=== PATIENT | female | born 1960 | race Caucasian/White ===

== ENCOUNTER 2024-02-16 10:33 | Inpatient (IN) | payer BC, SELFPAY ==
[2024-02-16] VITALS (18 sets, daily range): BP systolic 98–149; BP diastolic 51–71; BMI 26.4
[2024-02-16 07:03] LABS: % Basophils 0.9 % (0-2); % Eosinophils 1.7 % (0-6); % Immature Granulocytes 0.3 % (0-0.5); % Lymphocytes 12.2 % (20.5-51.1); % Monocytes 5.6 % (1.7-9.3); % Neutrophils 79.3 % (42.2-75.2); Absolute Basophils 0.1 10^3/uL (0-0.2); Absolute Eosinophils 0.2 10^3/uL (0-0.7); Absolute Lymphocytes 1.3 10^3/uL (1.2-3.4); Absolute Monocytes 0.6 10^3/uL (0.1-0.6); Absolute Neutrophils 8.2 10^3/uL (1.4-6.5); Hematocrit 38.1 % (37.0-47.0); Hemoglobin 13.1 g/dL (12.0-16.0); Mean Corp Hgb Conc. 34.4 g/dL (33.0-37.0); Mean Corpuscular Hgb 31.3 pg (27.0-31.0); Mean Corpuscular Volume 91.1 fL (81.0-99.0); Mean Platelet Volume 10.4 fL (7.4-10.4); Nucleated Red Blood Cells % 0 %; Platelet Count 296 10^3/uL (130-400); Red Blood Cell Count 4.18 10^6/uL (4.20-5.40); Red Cell Dist. Width 12.6 % (11.5-14.5); White Blood Cell Count 10.4 10^3/uL (4.8-10.8)
[2024-02-16 07:24] LABS: ALT (SGPT) 25 U/L (0-35); AST (SGOT) 32 U/L (14-36); Albumin 4.7 g/dl (3.5-5.0); Alkaline Phosphatase 45 U/L (38-126); Blood Urea Nitrogen 27 mg/dl (7-17); Calcium 9.8 mg/dl (8.4-10.2); Carbon Dioxide 27 mmol/L (22-30); Chloride 104 mmol/L (98-107); Glucose 144 mg/dl (70-99); Lipase 238 U/L (23-300); Potassium 4.4 mmol/L (3.5-5.1); Sodium 138 mmol/L (135-145); Total Bilirubin 0.5 mg/dl (0.2-1.3); Total Protein 7.4 g/dl (6.3-8.2); eGFR > 60.00
[2024-02-16] MEDS: ZOFRAN 4 MG IV (08:35)
[2024-02-16] MEDS: NSS 1000 IV (08:35)
[2024-02-16] MEDS: TORADOL 15 MG IV (08:35)
--- NOTE | 2024-02-16 10:08 | HPS.HSE ---
Addendum entered and electronically signed by Emiliano Pepper MD 02/16/24 12:33:
I saw and examined the patient independently.
The Research Methods Instructor's note was reviewed and I agree with the note, assessment and plan except where noted below.
Comment: This is a 63-year-old female who presents with a history of C-sections x 3, hysterectomy, cholecystectomy presents with mid abdominal pain yesterday with associated nausea. She underwent a CT scan here which demonstrated fairly large cecal
volvulus. Exam and labs reassuring.
Admit to the general surgery service.
Will plan for an exploratory laparotomy, ileus cecectomy versus right hemicolectomy.
N.p.o., IV fluids, IV antibiotics.
Risks/Benefits/Alternatives, expected postoperative course and possible complications (bleeding, infection, injury to surrounding structures, acute/chronic pain) discussed at length. Patient wishes to proceed with surgery. All questions answered.
Consent obtained.
I spent roughly 60 minutes in total for the care of this patient today including direct patient care and counseling, reviewing labs, imaging, coordination of care, as well as documentation.
Original Note:
Family Physician
-
Family Physician: Jamarcus Bishop
Chief Complaint
-
Abdominal pain
History of Present Illness
63 yo female with a h/o x3, cholecystectomy and hysterectomy who presents with mid abdominal pain which began yesterday with nausea and worsened overnight. She currently denies nausea and is more comfortable after receiving
analgesics/antiemetics in the ED. She denies fevers or chills.
Medical History
Past Medical History
Past Medical History: Reports Hypercholesterolemia and Other (psoriatic arthritis, interstitial cystitis)
Past Surgical History: Reports Cholecystectomy, (x3) and Gynocological (hysterectomy)
Social History
Tobacco: Non-smoker
Alcohol: None
Drug: None
Family History
Family History: Not pertinent
Allergies / Home Medications
Allergies reflects when Allergies were last updated in [employer].
Home Medications with original date entered in [employer]
Allergy/Medication List:
Patient Allergies
Allergy/AdvReac Type Severity Reaction Status Date / Time
codeine Allergy Hives, vomiting. Notes has taken other opioids in the past without hives Verified 02/16/24 06:27
Home meds: Cosentyx SQ weekly
Review of Systems
-
History Source: Patient and Family
A 12 point ROS was completed and negative except as noted: Yes
Physical Exam
Vital Signs
Vital Signs
Temp Pulse Resp BP Pulse Ox
98.1 F 70 20 114/61 100
02/16/24 09:24 02/16/24 09:24 02/16/24 06:27 02/16/24 09:24 02/16/24 09:24
Physical Exam
General: Well Developed, Well Nourished and Conversant
HEENT: Moist mucous membranes
Respiratory: Non Labored Respirations
GI: Soft, Tender (right to mid abd) and Distended
Neuro: Awake, Alert and AO x 3
Psych: Calm
Laboratory Results
-
02/16/24 06:52
02/16/24 06:52
Laboratory Results
Total Bilirubin 0.5 mg/dl (0.2-1.3) 02/16/24 06:52
AST 32 U/L (14-36) 02/16/24 06:52
ALT 25 U/L (0-35) 02/16/24 06:52
Alkaline Phosphatase 45 U/L (38-126) 02/16/24 06:52
Lipase 238 U/L (23-300) 02/16/24 06:52
Data Reviewed
-
CT Scan: Image Personally Visualized and interpreted, Report Reviewed by me, Discussed with Physician, Discussed with Patient and Discussed with Family
Lab Data: Labs Reviewed by me, Discussed with Physician, Discussed with Nurse and Discussed with Family
Old Records: Reviewed
Impression/Plan
-
IMPRESSION:
63 yo female with a h/o x3, cholecystectomy and hysterectomy who presents with mid abdominal pain which began yesterday and worsened overnight. AFVSS. No leukocytosis. CT imaging consistent with cecal volvulus.
PLAN:
Keep NPO
Plan OR today for ileocecectomy
Start IV Zosyn for surg ppx
IVF while NPO
Analgesics/antiemetics prn
SCDs for VTE ppx preop, will start lovenox sq post operatively
--- NOTE | 2024-02-16 10:29 | ED.GENMED ---
History of Present Illness
General
Chief Complaint: Abdominal Pain
Source: patient
Exam Limitations: none
Time Seen by Provider: 02/16/24 07:56
Nursing documentation reviewed up to this point in time: agreed with
Travel History
Have you had any contact with someone who has COVID-19?: No
Do you have any symptoms of coronavirus? Fever > 100 degrees, chills, cough, shortness of breath, sore throat, loss of taste or smell, muscle aches, or headache?: No
History of Present Illness
History of Present Illness:
63-year-old female past medical history of hyperlipidemia previous hysterectomy and cholecystectomy presenting to the emergency department today with concerns of right lower quad abdominal pain worsening since last night. Multiple episodes of
vomiting today no changes in bowel movements.
Past History
Past History
ED Past Medical History: Hypercholesterolemia
ED Past Surgical History: Cholecystectomy, and Gynecological (Hysterectomy)
Social History
Tobacco: Non-smoker
Alcohol: Occasional
Drug: None
Review of Systems
Review of Systems
Allergies reviewed?: Yes
All Other Systems: ROS reviewed and negative except as documented in HPI and ROS
Phy Exam
Physical Exam
Physical Exam:
GENERAL: Alert , in no apparent distress
EYE: pupils equal and reactive
NECK: Supple, no significant adenopathy.
ENT: o/p clr, mmm.
CARDIAC: Regular rate and rhythm .
LUNGS: Clear breath sounds bilaterally, no acute respiratory distress, no wheezes/rales/rhonchi
ABDOMEN right lower quadrant abdominal pain to palpation otherwise soft benign abdomen no peritoneal signs
NEUROLOGICAL: Alert and oriented, no focal neuro deficits
SKIN: Warm and dry, skin intact.
MUSCULOSKELETAL: No edema, well perfused.
PSYCH: Normal and appropriate interaction.
Course
Orders/Labs/Results
Orders:
Orders
02/16/24 06:52
Complete Blood Count/With Diff Urgent
Comprehensive Metabolic Panel Urgent
Lipase Urgent
02/16/24 08:14
CT Abd/Pel (IV only)-DH only Urgent
Comment:
Reason For Exam: RLQ pain, hx hysterectomy, katie
0.9% Sodium Chloride 1000 ml [Nss] 1,000 ml IV BOLUS
Ketorolac [Toradol] 15 mg IV NOW STA
Ondansetron Injectable [Zofran] 4 mg IV NOW STA
02/16/24 10:13
HYDROmorphone [Dilaudid] 0.25 mg IV PACU-Q5MPRN PRN
HYDROmorphone [Dilaudid] 0.5 mg IV PACU-Q5MPRN PRN
Meperidine [Demerol] 12.5 mg IV PACU-Q5MPRN PRN
Ondansetron Injectable [Zofran] 4 mg IV PACU-ONCEPRN PRN
Prochlorperazine [Compazine] 5 mg IV PACU-ONCEPRN PRN
Notify MD As Directed
Notify physician if: for SDS patients with known or suspected sleep obstructive sleep apnea, monitor in the
PACU.
Notify MD for any apneic/desaturation episodes
O2 Therapy [RESP] Urgent
Titrate/Wean O2 to maintain O2 sat greater than (%): 92
Special Instructions: -Provide supplemental oxygen to achieve O2 sat of 92% or greater.
-After 15 min, may wean O2 and discontinue if patient is able to maintain O2 sat of 92%
or greater during recovery period.
If patient is a discharge home, without oxygen therapy, notify anestheiologist if
unable to maintain O2 SAT of 92% or greater on room air for MD clearance.
02/16/24 10:15
Normosol (Mult Electrolytes) [Normosol-R] 1,000 ml IV PER PROTOCOL
02/16/24 10:20
Piperacillin/Tazo 3.375 Gram [Zosyn] 3.375 gram in 50 ml IV NOW
02/16/24 10:21
Admit/Transfer Patient As Directed
Co-Sign Provider:
Level of Care: Inpatient admission
Assign to:: Medical/Surgical
Physician / Group: Evgeny/general surgery
Diagnosis: cecal volvulus
Reason for Hospitalization: cecal volvulus
Expected length of stay greater than two midnights?: Yes
ELOS- Estimated Length of Stay in days: 4
I certify the patient meets the requirements for IP care: Yes
02/16/24 10:22
Code Status As Directed
Resuscitation Status: Full Code
Abnormal Lab Results
02/16/24
06:52
RBC 4.18 L 10^6/uL
(4.20-5.40)
MCH 31.3 H pg
(27.0-31.0)
Absolute Neuts (auto) 8.2 H 10^3/uL
(1.4-6.5)
Neutrophils % 79.3 H %
(42.2-75.2)
Lymphocytes % 12.2 L %
(20.5-51.1)
BUN 27 H mg/dl
(7-17)
Glucose 144 H mg/dl
(70-99)
02/16/24 06:52
02/16/24 06:52
Vital Signs
Initial and Last Documented VS:
Initial Vital Signs
Temp Pulse Resp BP Pulse Ox
98.1 F 98 20 99/60 98
02/16/24 06:27 02/16/24 06:27 02/16/24 06:27 02/16/24 06:27 02/16/24 06:27
Last Documented Vital Signs
Temp Pulse Resp BP Pulse Ox
98.1 F 70 20 114/61 100
02/16/24 09:24 02/16/24 09:24 02/16/24 06:27 02/16/24 09:24 02/16/24 09:24
MDM/Problems Addressed
MDM/Problems Addressed:
63-year-old female presenting to the emergency department today with concerns of right lower quadrant abdominal pain worsening since last night associated multiple episodes of vomiting. Upon arrival vital signs are normal patient does have
significant reproducible tenderness to the right lower quadrant. CT scan confirming cecal volvulus. Case discussed with surgery they will take her to the OR. Otherwise stable throughout ER stay.
*Critical Care Note
Total Time (30-74mins, 75-104mins- exclusive of procedures): Not Applicable
ED Attending Note
-
Portions of this chart may have been created with voice recognition software.� Occasional wrong word or��sound alike� substitutions may have occurred due to the inherent limitations of voice recognition software.
Discharge Plan
Departure
Patient Disposition: OR
Date of Disposition: 02/16/24
Time of Disposition: 10:29
Admit to: Med/Surg
Admit to doctor: Evgeny
Presentation/result/management discussed w/ accepting MD/DO: genreral surgery
Patient with high blood pressure during this ER visit?: No
Condition: Good
Covid-19: Not Applicable
Discharge Problem:
Cecal volvulus
Interventions
Interventions:
*Risk Screen - Suicide Last Done: 02/16/24 06:27
*General Assessment Last Done: 02/16/24 06:27
*Neglect/Abuse Screening Last Done: 02/16/24 06:27
ED- Fall Risk Assessment Last Done: 02/16/24 08:41
*ED COVID-19 Vaccine History Last Done: 02/16/24 06:27
ZP-Vrpvbm-Prutmdyrdr Assessment Last Done: 02/16/24 08:41
[2024-02-16] MEDS: ZOSYN 50 IV ×2 (10:53→20:48)
[2024-02-16] MEDS: DILAUDID 0.5 MG IV ×2 (11:43→15:39)
--- NOTE | 2024-02-16 14:57 | W.SUR.PREOP ---
Pre-Operative Surgical Note
-
I have examined this patient prior to the performance of the scheduled procedure.
The patient's condition is unchanged from the time of the current History and
Physical and the patient is able to undergo the scheduled procedure.
--- NOTE | 2024-02-16 14:57 | W.IMMPOSTOP ---
Surgical Immed Post Op Note
-
Primary Surgeon: Emiliano Pepper MD
Assisting Surgeon: None
Pre-op Diagnosis: Cecal volvulus
Post-op Diagnosis: Same
Procedure Performed: Open right hemicolectomy
Anesthesia Type: General
Specimen / Cultures:
1. Right colon
Estimated Blood Loss: 11 cc
Complications: None
Operative Findings: Grossly dilated cecum, ischemic but no necrosis or perforation noted. Ascending colon mobilized to the hepatic flexure and medialized with exposure of the duodenum. A mlqt-rh-hopp, functional end-to-end stapled ileocolic
anastomosis was performed using a Daljit technique using sequential fires of an 80 cm purple load and a 100 cm blue load.
POST OP PLAN:
Imaging: None
Labs: Routine AM
Diet: Okay for clears
Analgesia: Tylenol 650mg q6 Donna, Erlinda 5mg q6 PRN, Dilaudid 0.5mg q2h PRN
Neuro/vascular checks: q4h
AC/AP: Hold Therapeutic AC, Ok for DVT PPx
Activity: Ad Isela
Wound/Incisions/Drains: Routine. Okay to remove Paredes in the morning if urine output improves
Abx: None
Dispo: RNF
--- NOTE | 2024-02-16 15:42 | OR.RPT ---
Operative Report
Operative Report
Patient Name: Sabrina Lopez
: 1960
Date of Operation: 02/16/2024
Preoperative Diagnosis: Cecal volvulus
Postoperative Diagnosis: Same
Procedure(s):
1. Open right hemicolectomy
Surgeon(s):
Dr. Pepper
Perforator Loader(s):
None
Anesthesia: General
Estimated Blood Loss: 11 cc
Urine Output: 50 cc
Drains/Lines/Implants: 18 Dutch NG tube placed and removed at the end of the case. 16 Dutch Paredes catheter.
Specimens: Right colon
Indication for surgery:
This is a 63-year-old female who presents with a 1 day history of worsening abdominal pain with nausea found to have cecal volvulus. Risk benefits and alternatives were discussed with the patient. She ultimately agreed and was consented for
surgery.
Operative Findings: Grossly dilated cecum, ischemic but no necrosis or perforation noted. Ascending colon mobilized to the hepatic flexure and medialized with exposure of the duodenum. A ravh-jf-nacu, functional end-to-end stapled ileocolic
anastomosis was performed using a Daljit technique using sequential fires of an 80 cm purple load and a 100 cm blue load.
Details of the operation:
The patient was brought to the operating room and positioned supine on the operating table. General anesthesia was induced, followed by successful endotracheal intubation. A nasogastric tube and Paredes catheter were placed. She was positioned with
her bilateral arms out, all pressure points padded and secured to the operating room table using safety straps. Perioperative antibiotics in the form of Zosyn were administered. Her abdomen was prepped and draped in the usual sterile fashion. A
time-out was performed identifying the correct patient and procedure.
A 12 cm, periumbilical vertical midline laparotomy was created. Skin was incised sharply with a knife. Electrocautery was used for hemostasis and to dissect down through the soft tissues. The anterior fascia was identified. Decussation of the
anterior fascial sheath fibers were identified. Anterior fascia was penetrated using electrocautery, and the preperitoneal fat was incised. The abdomen was entered safely. An ischemic cecum was readily identified in our field. A large Kip
retractor was placed to protect the skin. The cecum was detorsed and brought into the field. The white line of Toldt was incised and carried cephalad along the descending colon up to the hepatic flexure. The mesentery of the right colon was then
medialized and the anterior portions of the second and third part of the duodenum were exposed. The terminal ileum appeared completely normal and viable. The right colon was ischemic up to the midpoint of the right colon. Part of the omentum was
tethered over this area and so this was carefully ligated off of the colon wall. Once we had satisfactory mobility of the right colon enterotomies were made on the antimesenteric side of the terminal ileum as well as the antimesenteric tinea of the
right colon. Using sequential fires of an Endo ANGY a stapled pars-wu-jich, functional end-to-end ileocolic anastomosis was performed using a Daljit technique with an intraluminal 80 cm purple followed by an extraluminal 100 cm blue load. There
was bleeding noted at the staple line which was cauterized. The intervening mesentery was ligated and the specimen was passed off the field. Our outer gloves were exchanged. The common enterotomy staple line was then oversewn using interrupted
3-0 silk pops. Two 3-0 silk pops crotch stitches were placed to help offload tension. The mesenteric defect was also closed using a running 3-0 silk. There was minimal blood loss and no spillage of enteric contents. The anastomosis was returned
to the abdomen and covered with omentum. The midline fascial defect was then closed using running [address] on a CT 2 needle anchored at each apex and tied in the middle. The subcutaneous tissues were then irrigated and closed with interrupted
3-0 Vicryl sutures. The skin was then approximated using a running 4-0 Monocryl followed by Dermabond. Given the minimal manipulation of the small intestine the NG tube was removed but the Paredes catheter was left in place. All counts were correct
at the end of procedure. The patient tolerated the procedure well. They were extubated and taken to the recovery area in good condition.
I was the attending physician and performed the procedure with no assistance. I was present for all portions of the case
Emiliano Pepper MD
[2024-02-16] MEDS: DILAUDID PCA 30 IV (16:02)
[2024-02-16] MEDS: NORMOSOL-R 1000 IV (17:09)
--- NOTE | 2024-02-16 17:32 | PTCARENOTE ---
awaiting ready bed
[2024-02-16 18:06] LABS: % Basophils 0.2 % (0-2); % Immature Granulocytes 0.4 % (0-0.5); % Monocytes 5.8 % (1.7-9.3); % Neutrophils 90.6 % (42.2-75.2); Absolute Immature Granulocytes 0.1 10^3/uL (0-0.05); Absolute Lymphocytes 0.4 10^3/uL (1.2-3.4); Absolute Monocytes 0.7 10^3/uL (0.1-0.6); Absolute Neutrophils 11.1 10^3/uL (1.4-6.5); Hematocrit 33.1 % (37.0-47.0); Hemoglobin 11.6 g/dL (12.0-16.0); Mean Corpuscular Hgb 31.5 pg (27.0-31.0); Mean Corpuscular Volume 89.9 fL (81.0-99.0); Mean Platelet Volume 10.2 fL (7.4-10.4); Nucleated Red Blood Cells % 0 %; Platelet Count 229 10^3/uL (130-400); Red Blood Cell Count 3.68 10^6/uL (4.20-5.40); Red Cell Dist. Width 12.8 % (11.5-14.5); White Blood Cell Count 12.3 10^3/uL (4.8-10.8)
--- NOTE | 2024-02-16 18:46 | PTCARENOTE ---
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
[2024-02-16] MEDS: TYLENOL PO (21:37)
[2024-02-17] MEDS: TYLENOL PO ×2 (00:36→04:16)
[2024-02-17] MEDS: ZOSYN 50 IV ×3 (01:56→13:50)
[2024-02-17 03:32] VITALS: BP 99/57
[2024-02-17 05:10] LABS: Hematocrit 30.8 % (37.0-47.0); Mean Corp Hgb Conc. 32.5 g/dL (33.0-37.0); Mean Corpuscular Hgb 30.9 pg (27.0-31.0); Mean Corpuscular Volume 95.1 fL (81.0-99.0); Mean Platelet Volume 10.5 fL (7.4-10.4); Platelet Count 211 10^3/uL (130-400); Red Blood Cell Count 3.24 10^6/uL (4.20-5.40); Red Cell Dist. Width 12.7 % (11.5-14.5); White Blood Cell Count 9.4 10^3/uL (4.8-10.8)
[2024-02-17] MEDS: NORMOSOL-R 1000 IV ×2 (05:26→18:00)
[2024-02-17 05:36] LABS: Blood Urea Nitrogen 17 mg/dl (7-17); Calcium 8.2 mg/dl (8.4-10.2); Carbon Dioxide 26 mmol/L (22-30); Chloride 107 mmol/L (98-107); Estimated Creatinine Clearance 73 ml/min; Glucose 116 mg/dl (70-99); Potassium 4.3 mmol/L (3.5-5.1); Sodium 139 mmol/L (135-145); eGFR > 60.00
[2024-02-17 07:37] VITALS: BP 99/52
--- NOTE | 2024-02-17 08:01 | W.PN.GS2 ---
Addendum entered and electronically signed by Shemar Martin MD 02/17/24 08:07:
Abx: 24 hours post-op
Original Note:
Today's Communication / Plan
-
-- Clears
-- MIVF
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
-- Abx for 4 days post-op
-- DC Paredes
-- OOB/ambulate, use of IS and wean O2
-- Repeat CBC ordered for tomorrow to trend Hb
Assessment / Plan
-
Patient is a 63 yo F POD#1 s/p open right hemicolectomy for cecal volvulus
AVSS, WBC normal, Hb drift down to 10 (tachycardia improved, pressures soft, making good UOP) monitor
Recovering well. No postoperative concerns.
-- Clears
-- MIVF
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
-- Abx for 4 days post-op
-- DC Paredes
-- OOB/ambulate, use of IS and wean O2
-- Repeat CBC ordered for tomorrow to trend Hb
Subjective Data
-
Date of Service: February 17, 2024
Complaints. Pain overall well-controlled. Denies nausea or vomiting. No flatus or BM. No ambulation. Afebrile. Denies shortness of breath or chest pain.
Objective Data
-
Intake and Output
02/16/24 02/17/24 02/18/24
06:59 06:59 06:59
Intake Total 1380 / 1380
Output Total 610 / 610
Balance 770 / 770
Intake:
Oral fluids 120 / 120
IV fluids (Total) 1160 / 1160
normosol 200 / 200
IV piggybacks 100 / 100
Output:
Urine, Paredes 610 / 610
Vital Signs
Temp Pulse Resp BP Pulse Ox
98.8 F 79 17 99/52 97
02/17/24 07:37 02/17/24 07:37 02/17/24 07:37 02/17/24 07:37 02/17/24 07:37
Lab Results
02/17/24 04:36
02/17/24 04:36
Calcium 8.2 mg/dl (8.4-10.2) L D 02/17/24 04:36
Total Bilirubin 0.5 mg/dl (0.2-1.3) 02/16/24 06:52
AST 32 U/L (14-36) 02/16/24 06:52
ALT 25 U/L (0-35) 02/16/24 06:52
Alkaline Phosphatase 45 U/L (38-126) 02/16/24 06:52
Total Protein 7.4 g/dl (6.3-8.2) 02/16/24 06:52
Albumin 4.7 g/dl (3.5-5.0) 02/16/24 06:52
Physical Exam
-
Gen: NAD
Resp: supplemental O2, no coarse BS opr wheeze
Abd: soft, mild tenderness in bl lower abdomen, ND, non-peritoneal, incision with some blistering, no erythema, ecchymosis or drainage
[2024-02-17] MEDS: TYLENOL 650 MG PO ×4 (08:28→19:39)
--- NOTE | 2024-02-17 10:41 | CM ---
Addendum entered by Erika Wood 02/17/24 10:46:
Pharmacy is [facility] in [place] and PCP is Dr. Jamarcus Bishop.
Original Note:
Initial assessment completed with patient with daughter in room. Patient lives with daughter in a 2nd story apartment with no elevator and 10 steps to enter the building. Support system is 2 daughters, 1 daughter is HC POA. 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 Anticipate no needs at discharge. Patient does not want HH.
[2024-02-17 11:26] VITALS: BP 106/54
[2024-02-17] MEDS: CYMBALTA DELAYED RELEASE 60 MG PO (13:50)
[2024-02-17] MEDS: ULTRAM 50 MG PO (14:47)
[2024-02-17 15:31] VITALS: BP 112/57
[2024-02-17] MEDS: LOVENOX 40 MG SC (18:01)
[2024-02-17] MEDS: DILAUDID 0.5 MG IV (19:39)
[2024-02-17 19:52] VITALS: BP 137/78
[2024-02-17 23:10] VITALS: BP 121/64
[2024-02-18] MEDS: TYLENOL 650 MG PO ×6 (00:51→20:00)
[2024-02-18 05:41] LABS: Hematocrit 26.8 % (37.0-47.0); Hemoglobin 8.9 g/dL (12.0-16.0); Mean Corp Hgb Conc. 33.2 g/dL (33.0-37.0); Mean Corpuscular Hgb 30.8 pg (27.0-31.0); Mean Corpuscular Volume 92.7 fL (81.0-99.0); Mean Platelet Volume 10.4 fL (7.4-10.4); Platelet Count 170 10^3/uL (130-400); Red Blood Cell Count 2.89 10^6/uL (4.20-5.40); Red Cell Dist. Width 12.6 % (11.5-14.5); White Blood Cell Count 6.5 10^3/uL (4.8-10.8)
[2024-02-18] MEDS: CYMBALTA DELAYED RELEASE 60 MG PO (07:29)
[2024-02-18] MEDS: ULTRAM 50 MG PO ×2 (07:29→13:29)
[2024-02-18 07:40] VITALS: BP 111/55
--- NOTE | 2024-02-18 11:20 | W.PN.GS2 ---
Today's Communication / Plan
-
Trend Hb
Adv to fulls
Monitor for nausea
Assessment / Plan
-
Patient is a 63 yo F POD#2 s/p open right hemicolectomy for cecal volvulus
AVSS, WBC normal, Hb drift down to 9, likely equilibration/dilution
Recovering well. Mild nausea, ileus is a risk here but she has no bloating/belching/distention. Will go slow with diet advancement.
-- Adv to fulls
-- MIVF
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
-- Abx for 4 days post-op
-- OOB/ambulate, use of IS and wean O2
-- Repeat CBC ordered for tomorrow to trend Hb
Subjective Data
-
Date of Service: February 18, 2024
AFVSS, amblating, voiding, philip clears, denies n/v, pain controlled, endorsed mild nausea
Objective Data
-
Intake and Output
02/17/24 02/18/24 02/19/24
06:59 06:59 06:59
Intake Total 1380 / 1380 2660 / 2660
Output Total 610 / 610 700 / 700
Balance 770 / 770 1960 / 1960
Intake:
Oral fluids 120 / 120 960 / 960
IV fluids (Total) 1160 / 1160 1600 / 1600
normosol 200 / 200
IV piggybacks 100 / 100 100 / 100
Output:
Urine, Paredes 610 / 610 700 / 700
Other:
Number of approximated MODERATE 1
amounts of urine
Number of approximated LARGE 2
amounts of urine
Vital Signs
Temp Pulse Resp BP Pulse Ox
98.8 F 77 17 111/55 97
02/18/24 07:40 02/18/24 07:40 02/18/24 07:40 02/18/24 07:40 02/18/24 08:00
Lab Results
02/18/24 05:24
02/17/24 04:36
Calcium 8.2 mg/dl (8.4-10.2) L D 02/17/24 04:36
Total Bilirubin 0.5 mg/dl (0.2-1.3) 02/16/24 06:52
AST 32 U/L (14-36) 02/16/24 06:52
ALT 25 U/L (0-35) 02/16/24 06:52
Alkaline Phosphatase 45 U/L (38-126) 02/16/24 06:52
Total Protein 7.4 g/dl (6.3-8.2) 02/16/24 06:52
Albumin 4.7 g/dl (3.5-5.0) 02/16/24 06:52
Physical Exam
-
Gen: NAD
Abd: soft, approp ttp, incision cdi with glue
[2024-02-18 15:10] VITALS: BP 142/74
[2024-02-18 23:10] VITALS: BP 145/70
[2024-02-19] MEDS: TYLENOL 650 MG PO ×4 (00:24→13:03)
[2024-02-19 07:20] VITALS: BP 154/88
[2024-02-19] MEDS: CYMBALTA DELAYED RELEASE 60 MG PO (08:08)
--- NOTE | 2024-02-19 09:05 | W.PN.GS2 ---
Today's Communication / Plan
-
`
Assessment / Plan
-
Patient is a 63 yo F POD#3 s/p open right hemicolectomy for cecal volvulus
AFVSS, Hb drift down to 9, likely equilibration/dilution
philip diet advancement with signs of returning GI function
-- Low residue diet
-- okay to shower
-- Multimodal pain control options
-- Abx for 4 days post-op
-- OOB/ambulate, use of IS and wean O2
-- AM labs pending
Poss d/c in PM if doing well with diet advancement
Subjective Data
-
Date of Service: February 19, 2024
Patient seen and examined
Overall feeling well, appetite starting to return
Tolerating full liquids, no nausea, no vomiting, stable mild postoperative bloating
Passing flatus regularly but no bowel movements yet
Objective Data
-
Intake and Output
02/18/24 02/19/24 02/20/24
06:59 06:59 06:59
Intake Total 2660 / 2660 240 / 240
Output Total 700 / 700
Balance 1960 / 1960 240 / 240
Intake:
Oral fluids 960 / 960 240 / 240
IV fluids (Total) 1600 / 1600
IV piggybacks 100 / 100
Output:
Urine, Paredes 700 / 700
Other:
Number of approximated MODERATE 1 2
amounts of urine
Number of approximated LARGE 2
amounts of urine
Vital Signs
Temp Pulse Resp BP Pulse Ox
97.9 F 77 17 154/88 96
02/19/24 07:20 02/19/24 07:20 02/19/24 07:20 02/19/24 07:20 02/19/24 07:20
Lab Results
02/18/24 05:24
02/17/24 04:36
Calcium 8.2 mg/dl (8.4-10.2) L D 02/17/24 04:36
Total Bilirubin 0.5 mg/dl (0.2-1.3) 02/16/24 06:52
AST 32 U/L (14-36) 02/16/24 06:52
ALT 25 U/L (0-35) 02/16/24 06:52
Alkaline Phosphatase 45 U/L (38-126) 02/16/24 06:52
Total Protein 7.4 g/dl (6.3-8.2) 02/16/24 06:52
Albumin 4.7 g/dl (3.5-5.0) 02/16/24 06:52
Physical Exam
-
NAD AAOx3
ABD: soft, ND, minimal tenderness
incision with glue dressing, no erythema, no drainage, localized ecchymosis no hematomas
[2024-02-19 11:57] LABS: % Basophils 0.7 % (0-2); % Eosinophils 5.6 % (0-6); % Immature Granulocytes 0.3 % (0-0.5); % Lymphocytes 13.4 % (20.5-51.1); % Monocytes 6.2 % (1.7-9.3); % Neutrophils 73.8 % (42.2-75.2); Absolute Basophils 0.1 10^3/uL (0-0.2); Absolute Eosinophils 0.4 10^3/uL (0-0.7); Absolute Monocytes 0.4 10^3/uL (0.1-0.6); Absolute Neutrophils 5.3 10^3/uL (1.4-6.5); Hematocrit 31.4 % (37.0-47.0); Hemoglobin 10.7 g/dL (12.0-16.0); Mean Corp Hgb Conc. 34.1 g/dL (33.0-37.0); Mean Corpuscular Hgb 30.5 pg (27.0-31.0); Mean Corpuscular Volume 89.5 fL (81.0-99.0); Mean Platelet Volume 10.3 fL (7.4-10.4); Nucleated Red Blood Cells % 0 %; Platelet Count 243 10^3/uL (130-400); Red Blood Cell Count 3.51 10^6/uL (4.20-5.40); Red Cell Dist. Width 12.2 % (11.5-14.5); White Blood Cell Count 7.2 10^3/uL (4.8-10.8)
--- NOTE | 2024-02-19 13:50 | CM ---
POD # 3, Low residue diet. DISCHARGE PLAN OF CARE: HOME with NO NEEDS. Patient declining home health services.
--- NOTE | 2024-02-19 14:28 | CM ---
Patient has been medically cleared for discharge to home with no additional skilled services. Daughter will transport home.
[2024-02-19 14:59] VITALS: BP 140/93
--- NOTE | 2024-02-20 11:03 | W.DCSUMMARY ---
Discharge Summary
Discharge Data
Date of Admission: 02/16/24
Date of Discharge: 02/19/24
-
Pending Results: No
Hospital Course
Ms Lopez presented through the ED with <24 hours abdominal pain with associated nausea. 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 The patient was taken urgently to the OR for management with open right hemicolectomy. She
initially required [employer] pump post operatively which was able to be discontinued the following day. Diet was able to be advanced slowly and well tolerated. Perioperative wang was removed and patient was voiding well. She was discharged to home on a
short course of antibiotics once pain was well controlled and she was tolerating a low residue diet.
Discharge Plan
-
Patient Disposition: Home (Routine Discharge)
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
Condition: Good
Diet: Low Residue
Activity: No strenuous activity
Bathing Restrictions: OK to Shower
Wound Care: Glue at surgical sites typically peels off in 2 to 3 weeks
Activity Restrictions/Additional Instructions:
Colon and Rectal Surgery Patient Discharge Instructions
Activity level: Avoid heavy lifting for the next 4 weeks or until cleared to do so at follow-up appointment. To expound on this, no straining, lifting, pushing, pulling greater than 15 lbs during this time frame. Do not engage in any activities
that would engage your core/abdominal muscles. No running, jumping, etc. Otherwise activity as tolerated by comfort level. It is OK to walk, and you should be encouraged to walk frequently.
Diet: Regular diet. You should try and drink 2 liters of fluids daily.
Bowel Medications: You should try to avoid being constipated for the next 4 weeks. If you find that you do not pass any stool for 48 hours, you should try over the counter options first for management of constipation - use miralax one to two times a
day. If this does not work, try adding milk of magnesia. You will use different medications and find the right regimen that works for you.
Driving: No driving while still taking opioid pain medications (wait at least 6-8 hours since last dose). No driving if you are still sore from surgery as it may limit your ability to react quickly if necessary.
Shower/Bath: You may shower and get incision(s) wet. Pat dry immediately following. Do not scrub them vigorously for the next 2-3 weeks. Do not soak incision(s) for the next 2 weeks (i.e. soaking in bath or swimming) as this may promote a wound
infection.
Wound Care: Remove gauze dressing if applied over wound. Wash incision with soap and water, pat dry, and leave open to air. You may cover with gauze as needed to prevent incision rubbing on clothes or for any seepage. If you have skin va or
sutures please call the office number below to schedule a follow-up appointment in 2 weeks.
Pain Medication: Tylenol should be used as primary [id number] pain reliever; 650mg every 6 hours as needed. Do not exceed 3000mg in 24 hours. Ibuprofen may also be used and dosed at 600mg every 6 hours as well and should be taken with food.
Alternate these two medications every three hours around the clock. ex. Tylenol 9am, Ibuprofen 12-noon, Tylenol 3pm, Ibuprofen 6pm, etc. Ibuprofen should only be used for a maximum of 2 weeks post-operatively. In addition to these medications,
non-opioid therapies and non-pharmacologic modalities such as heating pad, ice, and activity modification are recommended as appropriate for adjunct treatment of your pain.
For break through pain management, you are also being prescribed a prescription opioid for the treatment of acute post-operative pain related to surgery. You have been advised to take the smallest dose possible to control your pain and as your pain
improves, please take smaller doses and increase the time between doses.
Follow up Appointments/Questions: Please call [phone] to schedule/confirm your follow-up visit time

Call your doctor if:
- You develop any of the following sings or symptoms of infection:
- Redness or swelling of your incision (some mild redness around the incision and the staple sites is normal)
- Drainage or bleeding from your incision
- Fever over 100.5 F
- Increased pain or discomfort at the incision site
- Persistent nausea and/or vomiting or the inability to keep foods or fluids down in a 24 hour period.
- Signs or symptoms of dehydration:
- Dry mouth, lightheadedness
- Dark, concentrated urine, or lack of urine
- Any other concerning sign or symptom such as shortness or breath, chest pain, pain with urination or other signs of urinary tract infection (UTI), or new leg pain/swelling. Also, please call if you develop increasing abdominal pain, increasing
abdominal pain, abdominal firmness, if you stop passing gas or stool for an extended period of time, or bloody bowel movements/vomiting.
Referrals:
Jamarcus Bishop DO [Family Provider] -
Emiliano Pepper MD [Active] - in two to four weeks
Prescriptions:
New
polyethylene glycol 3350 [Miralax] 17 gram/dose powder
4 g PO DAILY PRN (Reason: Constipation) Qty: 119 0RF
Rx Instructions:
start a laxative such as MIRALAX as long as no nausea/vomiting and passing gas
acetaminophen [Tylenol Extra Strength] 500 mg tablet
1,000 mg PO Q6HPRN PRN (Reason: mild pain) Qty: 1 0RF
Continued
potassium citrate 10 mEq (1,080 mg) Tablet Extended Release
10 meq PO HS
naproxen sodium [Aleve] 220 mg Tablet
440 mg PO DAILY
fluticasone propionate 50 mcg/actuation [place],Suspension
1 spray INTRANASAL DAILY PRN (Reason: allergies)
duloxetine 60 mg Capsule,Delayed Release(Dr/Ec)
60 mg PO DAILY
fenofibrate 160 mg Tablet
160 mg PO DAILY
cholecalciferol (vitamin D3) 1,250 mcg (50,000 unit) Capsule
1,250 mcg PO GANDARA@0800
Vtama 1 % Cream
1 applic TOPICAL HS
Cosentyx
1 dose SC .SEE BELOW
Patient Comments:
02/17/2024,
QWeek x 5 weeks
QMonth thereafter
Pt. took last dose of QWeek dose on Friday (02/15/2024) and will continue taking QMonth moving forward per pt.; pt. received this med. directly from [facility] and does not know specific strength.
Held
magnesium oxide 500 mg magnesium Tablet
500 mg PO HS
Hold Instructions: Resume on 02/21/24. hold mag until bowels moving post op
Discharge Orders:
Discharge Patient (As Directed); Ordered 02/19/24
Ordered By: Emiliano Pepper
Discharge Date and Time
Discharge Date/Time: 02/19/24 15:52
Print Language: FRENCH
== END 2024-02-19 15:52 | disposition home or self-care (01) | DRG 331 ==
LOC: 2 SOUTH 10:33
PROVIDERS: Registered Nurse; Surgery; ADMITTING PHYSICIAN Surgery; EMERGENCY PHYSICIAN Emergency Medicine; FAMILY PHYSICIAN Family Medicine
PROC: 0DTF0ZZ Resection of Right Large Intestine, Open Approach (ICD-10-PCS; 2024-02-16)
DX: K56.2 Volvulus (principal); E78.00 Pure hypercholesterolemia, unspecified; L40.50 Arthropathic psoriasis, unspecified; Z90.49 Acquired absence of other specified parts of digestive tract; Z90.710 Acquired absence of both cervix and uterus
CPT/HCPCS: 88307; 74177; 80048; 80053; 83690; 85025; 85027; 93005; 96361; 96374; 96375; 99285; Q9967

== ENCOUNTER → 2024-09-22 07:28 | Outpatient (REF) | payer BC, SELFPAY | LOC: RAD 07:28 | PROVIDERS: ATTENDING PHYSICIAN Surgery; FAMILY PHYSICIAN Family Medicine | DX: R10.9 Unspecified abdominal pain (principal) | CPT/HCPCS: 74176 ==

== ENCOUNTER 2024-11-23 06:22 | Day surgery (SDC) | payer BC, SELFPAY ==
[2024-11-04 12:33] VITALS: BMI 25.9
[2024-11-23] VITALS (27 sets, daily range): BP systolic 20–165; BP diastolic 41–90; BMI 25.9
[2024-11-23] MEDS: TYLENOL 1000 MG PO (10:36)
--- NOTE | 2024-11-23 11:07 | HP.FOC2 ---
Focused History & Physical
Chief Complaint
HPI:
Chief Complaint: This is a 63-year-old female with a history of open ileocecectomy for cecal volvulus in February 2024 now with a symptomatic incisional hernia. Plan for open repair today.
HPI / Indication for Planned Procedure:
This is a 63-year-old female with a history of open ileocecectomy for cecal volvulus in February 2024 now with a symptomatic incisional hernia. Plan for open repair today.
Relevant Past Medical History: Negative
Relevant Social History: Negative
Relevant Family History: Negative
Relevant Past Surgical History: Positive for (Open ileocecectomy)
Review of Systems
Review of Pertinent Systems: All Systems Negative
Medication
See Medication form for detailed medications: Yes
Medication List (including Herbals & OTC):
cholecalciferol (vitamin D3) 1,250 mcg (50,000 unit) capsule 1,250 mcg PO GANDARA@0800 02/17/24
duloxetine 60 mg capsule,delayed release 60 mg PO DAILY 02/17/24
fenofibrate 160 mg tablet 160 mg PO DAILY 02/17/24
fluticasone propionate 50 mcg/actuation nasal spray,suspension 1 spray intranasal DAILY PRN allergies 02/17/24
magnesium oxide 500 mg PO HS 02/17/24
naproxen sodium 220 mg tablet (Aleve) 440 mg PO DAILY 02/17/24
potassium citrate 10 mEq (1,080 mg) tablet,extended release 10 meq PO HS 02/17/24
tapinarof 1 % topical cream (Vtama) 1 applic topical HS apply to left hand 02/17/24
acetaminophen 500 mg tablet (Tylenol Extra Strength) 1,000 mg (2 x 500 mg) PO Q6HPRN PRN mild pain #1 tab 02/19/24
polyethylene glycol 3350 17 gram/dose oral powder (Miralax) 4 g PO DAILY PRN Constipation #119 grams 02/19/24
deucravacitinib 6 mg tablet (Sotyktu) 6 mg PO HS 11/16/24
multivitamin 1 tab PO DAILY 11/16/24
Medications Reviewed: Yes
Allergies and Reactions
Patient has Allergies: Yes
Noted Allergies and Reactions:
Allergy/AdvReac Type Severity Reaction Status Date / Time
codeine Allergy Hives Verified 11/23/24 10:25
latex Allergy Shortness Verified 11/23/24 10:25
of Breath
strawberry Allergy Rash Verified 11/23/24 10:25
walnut Allergy Rash Verified 11/23/24 10:25
Pertinent Physical Exam
All Other Systems: Negative
Head/Neck: Normal
Diagnosis / Assessment
This is a 63-year-old female with a history of open ileocecectomy for cecal volvulus in February 2024 now with a symptomatic incisional hernia. Plan for open repair today.
Plan / Procedure
This is a 63-year-old female with a history of open ileocecectomy for cecal volvulus in February 2024 now with a symptomatic incisional hernia. Plan for open repair today.
Anesthesia/Sedation to be done by Anesthesia Provider: Yes
--- NOTE | 2024-11-23 15:41 | W.IMMPOSTOP ---
Surgical Immed Post Op Note
-
Primary Surgeon: Emiliano Pepper MD
Assisting Surgeon: None
Pre-op Diagnosis: Incisional hernia
Post-op Diagnosis: Same
Procedure Performed:
1. Open incisional hernia repair with bilateral posterior component separation (TAR) and mesh
2. Myofascial advancement flap, right
3. Myofascial advancement flap, left
Anesthesia Type: General
Specimen / Cultures: None
Estimated Blood Loss: 11 cc
Complications: None
Operative Findings: 8 cm wide by 12 cm long incisional hernia. There were no adhesions in the abdomen and the anastomosis looked intact, there was no significant scar tissue in this area. The posterior rectus sheath divided bilaterally and taken
to the level of the perforators, still unable to approximate the midline so bilateral myofascial advancement flaps were made by incising the posterior lamella of the internal oblique and dividing the transversus abdominis muscle bellies. The
peritoneum on the right side was particularly thin and a small hole in the left upper quadrant was made and could not be closed as the sutures kept tearing through the tissue. We elected to bridge the defect with Vicryl mesh. The midline was then
approximated with 0 Vicryl suture and the entire space was reinforced with a 20 x 20 cm Bard soft uncoated polypropylene mesh. A 19 [place] round Umer drain was introduced through stab incision in the left lower quadrant and passed above the mesh.
This was fixated to the skin with a 2-0 nylon suture. The anterior sheath was then approximated using running 0 PDS suture. The skin was closed in layers with interrupted 3-0 Vicryl followed by running 4-0 Monocryl and then Dermabond. The incision
was covered with an Aquacel dressing.
POST OP PLAN:
Imaging: None
Labs: Routine AM
Diet: Clears tonight, anticipate regular diet tomorrow
Analgesia: Tylenol 650mg q6 Donna, Toradol, Dilaudid as needed
Neuro/vascular checks: q4h
AC/AP: Hold Therapeutic AC, Ok for DVT PPx
Activity: Ad Isela, abdominal binder
Wound/Incisions/Drains: Routine, BECCA to bulb suction
Abx: None
Dispo: RNF, anticipate a 2 to 3 day hospital stay pending clinical course
[2024-11-23] MEDS: DILAUDID 0.5 MG IV ×2 (15:53→20:04)
--- NOTE | 2024-11-23 19:18 | PTCARENOTE ---
pt admitted to 2S room 2118 from the PACU at 1840. pt awake and alert. VS: 97.6-97-16-165/60, 97% on 2L NC. pt oriented to room, call atkinson and plan of care with verbalized understanding. Abdominal binder in place, midline abdominal surgical
dressing clean and dry. Left Abd BECCA drain w/dressing intact and sanguinous output noted. Paredes patent and draining clear yellow urine. tolerating sips of water. denies nausea or abdominal discomfort. daughters at bedside. care ongoing.
[2024-11-23] MEDS: TORADOL IV (20:03)
[2024-11-23] MEDS: LOVENOX 40 MG SC (20:03)
[2024-11-23] MEDS: NORMOSOL-R/PLASMALYTE-A IV (20:03)
[2024-11-23] MEDS: TYLENOL PO (21:25)
[2024-11-23] MEDS: TYLENOL 650 MG PO (23:42)
[2024-11-23] MEDS: TORADOL 10 MG IV (23:43)
[2024-11-24 03:03] VITALS: BP 116/69
[2024-11-24] MEDS: TYLENOL 650 MG PO ×6 (05:01→23:30)
[2024-11-24] MEDS: TORADOL 10 MG IV ×3 (05:02→23:29)
[2024-11-24 06:49] LABS: % Basophils 0.5 % (0-2); % Eosinophils 0.5 % (0-6); % Immature Granulocytes 0.5 % (0-0.5); % Lymphocytes 10.4 % (20.5-51.1); % Monocytes 8.5 % (1.7-9.3); % Neutrophils 79.6 % (42.2-75.2); Absolute Basophils 0.1 10^3/uL (0-0.2); Absolute Eosinophils 0.1 10^3/uL (0-0.7); Absolute Immature Granulocytes 0.1 10^3/uL (0-0.05); Absolute Lymphocytes 1.2 10^3/uL (1.2-3.4); Absolute Monocytes 0.9 10^3/uL (0.1-0.6); Absolute Neutrophils 8.9 10^3/uL (1.4-6.5); Hematocrit 32.1 % (37.0-47.0); Hemoglobin 10.5 g/dL (12.0-16.0); Mean Corp Hgb Conc. 32.7 g/dL (33.0-37.0); Mean Corpuscular Hgb 30.7 pg (27.0-31.0); Mean Corpuscular Volume 93.9 fL (81.0-99.0); Mean Platelet Volume 10.4 fL (7.4-10.4); Nucleated Red Blood Cells % 0 %; Platelet Count 225 10^3/uL (130-400); Red Blood Cell Count 3.42 10^6/uL (4.20-5.40); Red Cell Dist. Width 12.4 % (11.5-14.5); White Blood Cell Count 11.1 10^3/uL (4.8-10.8)
[2024-11-24 07:15] LABS: Blood Urea Nitrogen 19 mg/dl (7-17); Calcium 8.6 mg/dl (8.4-10.2); Carbon Dioxide 26 mmol/L (22-30); Chloride 103 mmol/L (98-107); Estimated Creatinine Clearance 70 ml/min; Glucose 102 mg/dl (70-99); Potassium 4.2 mmol/L (3.5-5.1); Sodium 138 mmol/L (135-145); eGFR > 60.00
[2024-11-24 07:55] VITALS: BP 128/62
--- NOTE | 2024-11-24 11:00 | CM ---
Reviewed the chart notes and spoke with the patient and one of her daughters at the bedside. The patient is admitted for hernia repair. The patient resides with her daughter in a second floor apartment with 10 steps to enter. The patient reports
no DME/VN/SNF in the past. The patient confirmed her pharmacy of choice is the [facility] and PCP is Dr. Jamarcus Walter. CM continues to be available to patient/family and is monitoring medical plan for needs at discharge.
Plan: Discharge to home when medically stable. No needs anticipated at discharge.
[2024-11-24] MEDS: TORADOL IV (11:30)
[2024-11-24] MEDS: NORMOSOL-R/PLASMALYTE-A 1000 IV (11:39)
[2024-11-24 15:41] VITALS: BP 127/63
[2024-11-24] MEDS: LOVENOX SC (17:00)
[2024-11-24 23:25] VITALS: BP 148/76
[2024-11-25] MEDS: TYLENOL 650 MG PO ×4 (04:55→15:32)
[2024-11-25 06:52] LABS: % Basophils 0.6 % (0-2); % Eosinophils 5.7 % (0-6); % Immature Granulocytes 0.2 % (0-0.5); % Lymphocytes 12.4 % (20.5-51.1); % Monocytes 7.8 % (1.7-9.3); % Neutrophils 73.3 % (42.2-75.2); Absolute Basophils 0.1 10^3/uL (0-0.2); Absolute Eosinophils 0.5 10^3/uL (0-0.7); Absolute Lymphocytes 1.2 10^3/uL (1.2-3.4); Absolute Monocytes 0.7 10^3/uL (0.1-0.6); Hematocrit 32.3 % (37.0-47.0); Hemoglobin 10.6 g/dL (12.0-16.0); Mean Corp Hgb Conc. 32.8 g/dL (33.0-37.0); Mean Corpuscular Volume 94.4 fL (81.0-99.0); Mean Platelet Volume 10.8 fL (7.4-10.4); Nucleated Red Blood Cells % 0 %; Platelet Count 219 10^3/uL (130-400); Red Blood Cell Count 3.42 10^6/uL (4.20-5.40); Red Cell Dist. Width 12.7 % (11.5-14.5); White Blood Cell Count 9.5 10^3/uL (4.8-10.8)
--- NOTE | 2024-11-25 07:13 | W.PN.GS2 ---
Today's Communication / Plan
-
Pain control
Will advance to a regular diet
DC Paredes
Up and out of bed and ambulate.
Anticipate discharge home as early as tomorrow pending clinical course.
Assessment / Plan
-
This is a 63-year-old female postoperative day 1 from a open incisional hernia repair with bilateral component separation. Doing well, expected postoperative course.
Pain control
Will advance to a regular diet
DC Paredes
Up and out of bed and ambulate.
Anticipate discharge home as early as tomorrow pending clinical course.
Time Spent
Total Time Spent with Patient (in minutes): 20
Subjective Data
-
Delayed entry note for date of Service: November 24, 2024
Interval Events:
No acute events overnight. Slept well. Pain Controlled. Denies Nausea/Vomiting, -bowel function. Tolerating diet.
Objective Data
-
Intake and Output
11/24/24 11/25/24 11/26/24
06:59 06:59 06:59
Intake Total 840 / 840 1280 / 1280
Output Total 1265 / 1265 45 / 45
Balance -425 / -425 1235 / 1235
Intake:
Oral fluids 240 / 240 1280 / 1280
IV fluids (Total) 600 / 600
Output:
Drain Output (Total) 165 / 165 45 / 45
Left Lower Abdomen Mariusz- 165 / 165 45 / 45
Priest
Urine, Paredes 600 / 600
Urine, Voided 500 / 500
Other:
Number of approximated MODERATE 1 2
amounts of urine
Vital Signs
Temp Pulse Resp BP Pulse Ox
99.1 F 88 16 148/76 100
11/24/24 23:25 11/24/24 23:25 11/24/24 23:25 11/24/24 23:25 11/24/24 23:25
Lab Results
11/25/24 05:45
Calcium 8.6 mg/dl (8.4-10.2) 11/24/24 06:24
Physical Exam
-
GENERAL/NEURO: Awake, Alert, no distress
CHEST: Unlabored breathing on RA
ABDOMEN: Soft, Non-Tender, Non-Distended, dressing in place, BECCA with minimal serous sanguinous output.
[2024-11-25 07:31] LABS: Blood Urea Nitrogen 20 mg/dl (7-17); Calcium 8.6 mg/dl (8.4-10.2); Carbon Dioxide 27 mmol/L (22-30); Chloride 104 mmol/L (98-107); Estimated Creatinine Clearance 80 ml/min; Glucose 98 mg/dl (70-99); Potassium 3.8 mmol/L (3.5-5.1); Sodium 140 mmol/L (135-145); eGFR > 60.00
[2024-11-25 07:52] VITALS: BP 150/82
--- NOTE | 2024-11-25 08:07 | W.PN.GS2 ---
Today's Communication / Plan
-
Dispo planning
Assessment / Plan
-
This is a 63-year-old female postoperative day 2 from a open incisional hernia repair with bilateral component separation. Doing well, expected postoperative course.
Pain control, will switch to oral pain medications
Up and out of bed and ambulate.
Anticipate discharge home this afternoon pending clinical course.
Time Spent
Total Time Spent with Patient (in minutes): 20
Subjective Data
-
Date of Service: November 25, 2024
Interval Events:
No acute events overnight. Slept well. Pain Controlled. Denies Nausea/Vomiting, +bowel function. Tolerating diet.
Objective Data
-
Intake and Output
11/24/24 11/25/24 11/26/24
06:59 06:59 06:59
Intake Total 840 / 840 1280 / 1280
Output Total 1265 / 1265 45 / 45
Balance -425 / -425 1235 / 1235
Intake:
Oral fluids 240 / 240 1280 / 1280
IV fluids (Total) 600 / 600
Output:
Drain Output (Total) 165 / 165 45 / 45
Left Lower Abdomen Mariusz- 165 / 165 45 / 45
Priest
Urine, Paredes 600 / 600
Urine, Voided 500 / 500
Other:
Number of approximated MODERATE 1 2
amounts of urine
Vital Signs
Temp Pulse Resp BP Pulse Ox
98.5 F 79 16 150/82 99
11/25/24 07:52 11/25/24 07:52 11/25/24 07:52 11/25/24 07:52 11/25/24 07:52
Lab Results
11/25/24 05:45
11/25/24 05:45
Calcium 8.6 mg/dl (8.4-10.2) 11/25/24 05:45
Physical Exam
-
GENERAL/NEURO: Awake, Alert, no distress
CHEST: Unlabored breathing on RA
ABDOMEN: Soft, Non-Tender, Non-Distended, dressing removed, incision clean dry and intact. BECCA with serosanguineous output.
[2024-11-25] MEDS: COLACE 100 MG PO (08:20)
[2024-11-25] MEDS: MIRALAX 17 GRAMS PO (08:20)
--- NOTE | 2024-11-25 13:31 | CM ---
Reviewed the chart notes. Patient for discharge today to home with no additional needs being identified at this time. CM continues to be available to patient/family and is monitoring medical plan for needs at discharge.
Plan: Discharge to home when medically stable.
[2024-11-25 15:50] VITALS: BP 155/78
--- NOTE | 2024-11-25 15:58 | W.PN.UPDATE ---
Update Note
Progress Note Update
Pain controlled on oral pain medication.
Patient tolerating diet, having bowel function.
Minimal drain output and now more serous than sanguinous. Removed at bedside.
Will plan to discharge later today.
--- NOTE | 2024-11-25 16:02 | OR.RPT ---
Operative Report
Operative Report
Patient Name: Sabrina Lopez
: 1960
Date of Operation: 11/25/2024
Preoperative Diagnosis: Incisional ventral hernia
Postoperative Diagnosis: Same
Procedure(s):
1. Open incisional hernia repair with bilateral component separation (TAR) and mesh
2. Myofascial advancement flap, right
3. Myofascial advancement flap, left
Surgeon(s):
Dr. Pepper
Decaler(s):
RAHUL Perez
Anesthesia: General
Estimated Blood Loss: 11 cc
Urine Output: None
Drains/Lines/Implants: 19 [place] round Umer drain inserted through left lower quadrant stab incision and secured at the skin with a 2-0 nylon stitch in the retrorectus space.
Specimens: None
Indication for surgery:
This is a 63-year-old female with a history of a cecal volvulus status post laparoscopic assisted open ileocecectomy that subsequently developed a symptomatic incisional hernia. After review of their therapeutic options, they elected to pursue open
repair.
Operative Findings: 8 cm wide by 12 cm long incisional hernia. There were no adhesions in the abdomen and the anastomosis looked intact, there was no significant scar tissue in this area. The posterior rectus sheath divided bilaterally and taken
to the level of the perforators, still unable to approximate the midline so bilateral myofascial advancement flaps were made by incising the posterior lamella of the internal oblique and dividing the transversus abdominis muscle bellies. The
peritoneum on the right side was particularly thin and a small hole in the left upper quadrant was made and could not be closed as the sutures kept tearing through the tissue. We elected to bridge the defect with Vicryl mesh. The midline was then
approximated with 0 Vicryl suture and the entire space was reinforced with a 20 x 25 cm Bard soft uncoated polypropylene mesh. A 19 [place] round Umer drain was introduced through stab incision in the left lower quadrant and passed above the mesh.
This was fixated to the skin with a 2-0 nylon suture. The anterior sheath was then approximated using running 0 PDS suture. The skin was closed in layers with interrupted 3-0 Vicryl followed by running 4-0 Monocryl and then Dermabond. The incision
was covered with an Aquacel dressing.
Details of the operation:
The patient was brought into the room and placed in the supine position. JULIO block was performed by anesthesia. After successful induction of general anesthesia and placement of an endotracheal tube, the patient was clipped, prepped and draped in
the supine position. A Paredes catheter was placed. A team timeout was performed confirming administration of DVT prophylaxis, IV antibiotics and SCDs. The skin was anesthestized and an incision was made through her previous vertical midline
incision and the dissection was carried down to the level of the fascia. We elected to enter the abdomen safely superiorly. The midline fascia was quite attenuated and a true peritoneal hernia sac was not encountered specifically. The abdomen was
entered safely and there was surprisingly no adhesions. We turned our attention to the right lower quadrant to evaluate her previous anastomosis as she the complained that there was occasional pain in this area but no abnormalities were found. A
large blue towel was then inserted into the abdomen to protect the viscera. We began by incising the left posterior rectus sheath identifying the muscle belly of the rectus muscle and taking this cephalad and caudad. The rectus muscle was then
carefully dissected off of the rectus sheath up to the level of the inferior epigastrics taking care to preserve the neuro vascular bundles. It was clear given the width of the hernia which measured 8 cm wide by 12 cm long, we would need additional
release to achieve a physiologic tension free midline closure. Thus, the posterior lamella of the internal oblique was incised and the transversus abdominis muscle bellies were identified. This dissection was carried cephalad and caudad taking
care to stay in the pre-transversalis plane, below the arcuate line we did transition to the preperitoneal space after division of the exposed transversus abdominis muscle bellies we were able to medialize our posterior rectus sheath closer to the
midline. A few small holes in the transversalis fascia were closed with interrupted 3-0 Vicryl suture. We then turned our attention to the right side and perform the same dissection. The right upper quadrant peritoneum however was extraordinarily
thin and we did make a hole that was difficult to close, I was able to get around it and get further dissection laterally but still any suture thrown into this tissue seem to tear and only make the hole bigger. As a result, I elected to use her
underlying omentum to buttress this opening taking intermittent bites from the omentum to the the opening and suturing in place with 3-0 Vicryl suture. We then connected our superior and inferior apices of our dissection with contralateral side
taking the falciform ligament fat down and the space of Retzius respectively allowing a transition from both sides into a continuous space. We then approximated the midline with 2 running 0 Vicryl sutures anchored at each apex and closed in the
middle. The peritoneum, particularly on the right side was still very thin so I placed a large piece of flat Vicryl mesh over the space first before placing our 20 x 25 cm Bard soft uncoated polypropylene mesh on top of that to achieve wide overlap
and reinforcement of the peritoneal sac. Neither mesh was fixated in place as they were cut to size and could not move within this cavity. A 19 [place] round Umer drain was then introduced through a stab incision in the left lower quadrant and
passed into the retrorectus space. This was anchored at the skin with a 2-0 nylon suture and hooked to a bulb suction device. The anterior rectus sheath was then identified and approximated using 2 running 0 PDS sutures anchored at each apex and
tied in the middle. The skin was then closed in layers with interrupted 3-0 Vicryl sutures followed by a running 4-0 Monocryl followed by Dermabond. After allowing time for this to set, the incision was covered with an Aquacel dressing. The
patient returned to the Recovery Room in stable condition. Sponge and instrument counts were correct. No specimens sent to Pathology.
I was the attending physician and performed the procedure with assistance from the VENEER GRADER above . I was present for all portions of the case, excluding skin closure.
Emiliano Pepper MD
== END 2024-11-25 16:20 | disposition home or self-care (01) ==
LOC: SDS 06:22
PROVIDERS: ATTENDING PHYSICIAN Surgery; FAMILY PHYSICIAN Family Medicine
DX: K43.2 Incisional hernia without obstruction or gangrene (principal)
CPT/HCPCS: 49595; 36415; 80048; 85025; 93005; C1781

== ENCOUNTER → 2025-02-24 08:29 | Outpatient (REF) | payer OTHER, SELFPAY | LOC: HWRAD 08:29 | PROVIDERS: ATTENDING PHYSICIAN Surgery; FAMILY PHYSICIAN Family Medicine | DX: R10.9 Unspecified abdominal pain (principal) | CPT/HCPCS: 74176 ==

== ENCOUNTER 2025-07-20 14:29 | Outpatient (RCR) | payer SELFPAY | END 2025-07-20 23:59 | disposition home or self-care (01) | LOC: RPT 14:29 | PROVIDERS: ATTENDING PHYSICIAN Nurse Practitioner; FAMILY PHYSICIAN Family Medicine | DX: N30.11 Interstitial cystitis (chronic) with hematuria (principal); R10.2 Pelvic and perineal pain; M62.89 Other specified disorders of muscle; Z73.6 Limitation of activities due to disability | CPT/HCPCS: 97163; 97530 ==